=== PATIENT | female | born 1980 | race Caucasian/White ===

== ENCOUNTER 2021-09-23 18:04 | Inpatient (IN) | payer OTHER ==
[2021-09-23] MEDS ORDERED: ROCEPHIN 2 Gm-D5w 50ML BAG** 2 G/50 ML IVPB IV ONE (18:14)
[2021-09-23] MEDS ORDERED: DECADRON 10MG INJ. ONE (18:14)
[2021-09-23] MEDS ORDERED: Zithromax 500 MG/ 250 ML NaCl Premix 500 MG/250 ML IVPB IV ONE (18:15)
[2021-09-23] MEDS ORDERED: ROCEPHIN 2 Gm-D5w 50ML BAG** 2 G/50 ML IVPB IV STA (18:15)
[2021-09-23] MEDS ORDERED: Zithromax 500 MG/ 250 ML NaCl Premix 500 MG/250 ML IVPB IV STA (18:15)
[2021-09-23] MEDS ORDERED: DECADRON 10MG INJ. IV ONE (18:16)
[2021-09-23] MEDS ORDERED: REMDESIVIR 200 MG in Sodium Chloride 0.9% 250 ML 250 ML IV ONE (18:17)
--- NOTE | 2021-09-23 18:21 | ERPHSYRPT ---
- History of Present Illness Source: patient Exam Limitations: no limitations Timing/Duration: day(s) (10), gradual onset, worse Activities at Onset: activity, rest Severity of Dyspnea-Max: severe Severity of Dyspnea-Current: severe Possible Cause: illness exposure Modifying Factors: Improves With: oxygen. Worsens With: activity, coughing, deep breath, exertion Associated Symptoms: chest pain/discomfort, fever, wheezing, heaviness, lightheadedness, painful breathing, productive cough, tightness, No cough Hx Tetanus, Diphtheria Vaccination/Date Given: No Hx Influenza Vaccination/Date Given: No Hx Pneumococcal Vaccination/Date Given: No <LUCIO GOMEZ - Last Filed: 09/23/21 18:31> <MARY GRIGGS - Last Filed: 09/23/21 19:23> - History of Present Illness Time Seen by Provider: 09/23/21 18:07 Physician History: 41 years old morbidly obese female presented in the ER with chief complaint of worsening shortness of breath and cough for 10 days. Patient tested positive for COVID-19 1 day after receiving first shot of Pfizer vaccine. Shortness of breath initially with activity and now even at resting with cough productive of minimal clear mucus with subjective feeling of fever chills, headache, body aches and generalized weakness fatigue. Patient reports her shortness of breath was initially responding to breathing treatment but today got worse to the point she was not able to catch her breath even resting. On presentation her oxygen saturation is in the 60s. She is placed on nonrebreather which improved to 92% and is going to be placed on BiPAP. (LUCIO GOMEZ) Allergies/Adverse Reactions: No Known Drug Allergies Allergy (Verified 09/23/21 18:06) Home Medications: Chantix 01/23/13 [History] Protonix 01/23/13 [History] Synthroid 75 01/23/13 [History] - Review of Systems Constitutional: Fever, Chills, Fatigue, Weakness Eyes: No Symptoms Ears, Nose, & Throat: Nose Congestion, Throat Swelling Respiratory: Cough, Dyspnea, Dyspnea on Exertion (VALDES), Wheezing Cardiac: Chest Pain Abdominal/Gastrointestinal: No Symptoms Genitourinary Symptoms: No Symptoms Musculoskeletal: Myalgias Skin: No Symptoms Neurological: Dizziness, Headache Psychological: No Symptoms Endocrine: No Symptoms Hematologic/Lymphatic: No Symptoms Immunological/Allergic: No Symptoms <ERIKA GOMEZMIR - Last Filed: 09/23/21 18:31> - Past Medical History Pertinent Past Medical History: Yes Cardiac History: Hypertension Endocrine Medical History: Hypothyroidism - Past Surgical History Past Surgical History: Yes Female Surgical History: Section - Social History Smoking Status: Current every day smoker How long have you smoked: yrs Exposure to second hand smoke: Yes Drug Use: none Patient Lives Alone: No - Female History Hx Now: (unkn) <PATRICIAULCIO - Last Filed: 09/23/21 18:31> - Physical Exam General Appearance: moderate distress, alert Eye Exam: PERRL/EOMI, eyes nml inspection Ears, Nose, Throat Exam: hearing grossly normal, pharyngeal erythema Neck Exam: normal inspection, non-tender, supple, full range of motion Respiratory Exam: respiratory distress, diminished breath sounds, accessory muscle use, crackles/rales, rhonchi, wheezing Cardiovascular/Chest Exam: normal heart sounds, regular rate/rhythm Abdominal/Gastrointestinal Exam: soft, normal bowel sounds, No tenderness Extremity Exam: non-tender, normal range of motion Neurologic Exam: alert, oriented x 3, cooperative, die out worker II-XII nml as tested Skin Exam: normal color SpO2 Interpretation: hypoxic, O2 applied SpO2: 92 O2 Delivery: Non-rebreather <ERIKA GOMEZMIR - Last Filed: 09/23/21 18:31> - Nursing Vital Signs Nursing Vital Signs: Initial Vital Signs O2 Sat by Pulse Oximetry 67 L 09/23/21 18:05 Pain Scale Pain Intensity 0 - Course EKG Interpreted by Me: RATE (100), Sinus Rhythm, NORMAL AXIS, NORMAL INTERVALS, Q-wave (Inferior) <PATRICIALUCIO - Last Filed: 09/23/21 18:31> - Course EKG Interpreted by Me: RATE (100), Sinus Tach, NORMAL AXIS, NORMAL INTERVALS, NORMAL QRS - Radiology Exams Chest X-ray Interpretation: Interpreted by me, Other (Bilateral fluffy opacities both lung landers Covid-like in appearance) <MARY GRIGGS - Last Filed: 09/23/21 19:23> Ordered Tests: Active Orders 24 hr Category Date Time Status Supervisor Fine Grading STAT Care 09/23/21 18:16 Active EKG-ER Only STAT Care 09/23/21 18:15 Active IV Insertion STAT Care 09/23/21 18:15 Active Pulse Oximetry (ED) STAT Care 09/23/21 18:15 Active CHEST 1 VIEW (PORTABLE) Stat Exams 09/23/21 18:16 Taken ARTERIAL BLOOD GASES Stat Lab 09/23/21 18:25 Completed BLOOD CULTURE Stat Lab 09/23/21 18:20 Received CBC W DIFF Stat Lab 09/23/21 18:15 Completed CMP Stat Lab 09/23/21 18:20 Completed D-DIMER QUANTITATIVE Stat Lab 09/23/21 18:20 Completed Lactic Acid Stat Lab 09/23/21 18:25 Completed MAGNESIUM Stat Lab 09/23/21 18:20 Completed Manual Differential NC Stat Lab 09/23/21 18:15 Completed NT PRO BNP Stat Lab 09/23/21 18:20 Completed PROTIME WITH INR Stat Lab 09/23/21 18:20 Completed PTT Stat Lab 09/23/21 18:20 Completed TROPONIN Q3H Lab 09/23/21 18:20 Completed TROPONIN Q3H Lab 09/23/21 21:30 Ordered TROPONIN Q3H Lab 09/24/21 00:30 Ordered TROPONIN Q3H Lab 09/24/21 03:30 Ordered TROPONIN Q3H Lab 09/24/21 06:30 Ordered UA W/RFX UR CULTURE Stat Lab 09/23/21 18:16 Ordered BiPap/CPAP STAT RT 09/23/21 18:15 Active Respiratory MDI STAT RT 09/23/21 18:50 Completed Respiratory Therapy Assessment DAILY RT 09/23/21 18:43 Completed Medication Summary Generic Name Dose Route Start Last Admin Trade Name Freq PRN Reason Stop Dose Admin Remdesivir 200 mg/ Sodium 250 mls @ 125 mls/hr 09/23/21 18:17 Chloride IV 09/23/21 20:16 ONCE ONE Discontinued Medications Generic Name Dose Route Start Last Admin Trade Name Freq PRN Reason Stop Dose Admin Albuterol Sulfate 4 puff 09/23/21 18:32 09/23/21 18:42 Albuterol Common Canister Inhaler IH 09/23/21 18:33 4 puff ONCE STA Administration Dexamethasone Sodium Phosphate Confirm 09/23/21 18:14 Dexamethasone Sod Phosphate 10 Mg/Ml Administered 09/23/21 18:15 Dose 10 mg .ROUTE .STK-MED ONE Dexamethasone Sodium Phosphate 6 mg 09/23/21 18:16 09/23/21 18:23 Dexamethasone Sod Phosphate 10 Mg/Ml IV 09/23/21 18:17 6 mg STAT ONE Administration Ceftriaxone Sodium/Dextrose Confirm 09/23/21 18:14 Rocephin 2 Gm-D5w 50ml Bag Administered 09/23/21 18:15 Dose 2 g in 50 mls @ ud IV .STK-MED ONE Ceftriaxone Sodium/Dextrose 2 g in 50 mls @ 100 mls/hr 09/23/21 18:15 09/23/21 18:53 Rocephin 2 Gm-D5w 50ml Bag IV 09/23/21 18:44 Infused STAT STA Infusion Azithromycin 500 mg in 250 mls @ 250 mls/hr 09/23/21 18:15 09/23/21 18:23 Zithromax 500 Mg/ 250 Ml Nacl Premix IV 09/23/21 19:14 250 mls/hr STAT STA 250 mls/hr Administration Azithromycin Confirm 09/23/21 18:15 Zithromax 500 Mg/ 250 Ml Nacl Premix Administered 09/23/21 18:16 Dose 500 mg in 250 mls @ ud IV .STK-MED ONE Lab/Rad Data: Laboratory Result Diagrams 09/23/21 18:15 09/23/21 18:20 Laboratory Results 09/23/21 09/23/21 09/23/21 Range/Units 18:25 18:20 18:20 WBC (4.0-10.5) K/mm3 RBC (4.1-5.4) M/mm3 Hgb (12.0-16.0) gm/dl Hct (35-47) % MCV (78-100) fl MCH (26-32) pg MCHC (32-36) g/dl RDW (11.5-14.0) % Plt Count (150-450) K/mm3 MPV (7.5-11.0) fl PT 14.3 H (9.4-12.5) SECONDS INR 1.21 (0.8-3.0) APTT 31.4 (25.1-36.5) SECONDS D-Dimer 927 H* (215-500) ng/mL Puncture Site LEFT RADIAL pCO2 45 (35-45) mmHg pO2 77 (75-100) mmHg Base Excess 8.0 H (-2.0-2.0) O2 Saturation 94.1 (94-100) g/dF ABG pH 7.47 H (7.35-7.45) ABG HCO3 32.8 H* (22-28) ABG O2 Sat (Measured) 96.4 (95-100) % Jayce Test YES A-a Gradient 437 a/A Ratio 0.15 Hemoglobin 13.7 Carboxyhemoglobin 1.5 (0.0-6.9) % THgb Methemoglobin 0.9 L (1.4-1.5) % Temperature 37.0 C POC O2 Flow Rate 80 % Inspiratory BiPAP 14 Expiratory BiPAP 8 Sodium (137-145) mmol/L Potassium 3.3 L (3.5-5.1) mmol/L Chloride (98-107) mmol/L Carbon Dioxide (22-30) mmol/L Anion Gap (5-15) MEQ/L BUN (7-17) mg/dL Creatinine (0.52-1.04) mg/dL Estimated GFR ML/MIN Glucose (74-106) mg/dL Lactic Acid 1.4 (0.4-2.0) Calcium (8.4-10.2) mg/dL Magnesium (1.6-2.3) mg/dL Total Bilirubin (0.2-1.3) mg/dL AST (14-36) U/L ALT (0-35) U/L Alkaline Phosphatase (38-126) U/L Troponin I < 0.012 (0.000-0.034) ng/mL NT-Pro-B Natriuret Pep (0-450) pg/mL Serum Total Protein (6.3-8.2) g/dL Albumin (3.5-5.0) g/dL 09/23/21 09/23/21 Range/Units 18:20 18:15 WBC 6.4 (4.0-10.5) K/mm3 RBC 4.79 (4.1-5.4) M/mm3 Hgb 13.8 (12.0-16.0) gm/dl Hct 43.8 (35-47) % MCV 91.4 (78-100) fl MCH 28.8 (26-32) pg MCHC 31.5 L (32-36) g/dl RDW 14.5 H (11.5-14.0) % Plt Count 256 (150-450) K/mm3 MPV 9.8 (7.5-11.0) fl PT (9.4-12.5) SECONDS INR (0.8-3.0) APTT (25.1-36.5) SECONDS D-Dimer (215-500) ng/mL Puncture Site pCO2 (35-45) mmHg pO2 (75-100) mmHg Base Excess (-2.0-2.0) O2 Saturation (94-100) g/dF ABG pH (7.35-7.45) ABG HCO3 (22-28) ABG O2 Sat (Measured) (95-100) % Jayce Test A-a Gradient a/A Ratio Hemoglobin Carboxyhemoglobin (0.0-6.9) % THgb Methemoglobin (1.4-1.5) % Temperature C POC O2 Flow Rate % Inspiratory BiPAP Expiratory BiPAP Sodium 139 (137-145) mmol/L Potassium 4.1 (3.5-5.1) mmol/L Chloride 96 L (98-107) mmol/L Carbon Dioxide 30 (22-30) mmol/L Anion Gap 15.9 H (5-15) MEQ/L BUN 9 (7-17) mg/dL Creatinine 0.53 (0.52-1.04) mg/dL Estimated GFR > 60.0 ML/MIN Glucose 179 H (74-106) mg/dL Lactic Acid (0.4-2.0) Calcium 8.6 (8.4-10.2) mg/dL Magnesium 1.9 (1.6-2.3) mg/dL Total Bilirubin 0.60 (0.2-1.3) mg/dL AST 64 H (14-36) U/L ALT 55 H (0-35) U/L Alkaline Phosphatase 56 (38-126) U/L Troponin I (0.000-0.034) ng/mL NT-Pro-B Natriuret Pep 28.8 (0-450) pg/mL Serum Total Protein 6.6 (6.3-8.2) g/dL Albumin 3.7 (3.5-5.0) g/dL - Progress Progress: re-examined Air Movement: fair Blood Culture(s) Obtained: Yes Antibiotics given: Yes Discussed with : Other <LUCIO GOMEZ - Last Filed: 09/23/21 18:31> - Progress Progress Note: 09/23/21 18:52 She is placed on nonrebreather. EKG showed sinus rhythm without any acute ST elevation. Given IV steroids and albuterol puffs and started her on remdesivir along with Rocephin and Zithromax. Work-up is pending, care is transferred to Dr. Griggs at shift change for reevaluation and final disposition. (LUCIO ALICEA) <LUCIO GOMEZ - Last Filed: 09/23/21 18:31> - Departure Departure Disposition: In-patient Admission Critical Care Time: Yes Critical Care Time(excluding separately billable procedures): Critical 30-74 mins (55 min) <MARY RGIGGS - Last Filed: 09/23/21 19:23> - Departure Clinical Impression: Pneumonia due to COVID-19 virus Condition: Critical Referrals: VAIBHAV FRANCES [Primary Care Provider] - Follow up/PCP as directed
[2021-09-23 18:32] LABS: A-aADO2 437; ABG HEMOGLOBIN 13.7; ABG POTASSIUM 3.3 (3.5-5.1); ARTERIAL BLD GAS O2 SATURATION 96.4 % (95-100); ARTERIAL BLOOD GAS FIO2 80 %; ARTERIAL BLOOD GAS PCO2 45 mmHg (35-45); ARTERIAL BLOOD GAS PO2 77 mmHg (75-100); ARTERIAL BLOOD GAS pH 7.47 (7.35-7.45); CARBOXYHEMOGLOBIN 1.5 % THgb (0.0-6.9); HCO3- 32.8 (22-28); HGB O2 SAT 94.1 g/dF (94-100); Lactic Acid 1.4 (0.4-2.0); Methhemoglobin 0.9 % (1.4-1.5)
[2021-09-23] MEDS ORDERED: VENTOLIN COMMON CANISTER IH STA (18:32)
[2021-09-23 18:33] LABS: ABG SITE LEFT RADIAL; ALLEN TEST OK? YES
[2021-09-23 18:48] LABS: Hematocrit 43.8 % (35-47); Hemoglobin 13.8 gm/dl (12.0-16.0); Mean Cell Volume 91.4 fl (78-100); Mean Corpuscular Hemoglobin 28.8 pg (26-32); Mean Corpuscular Hgb Concent. 31.5 g/dl (32-36); Mean Platelet Volume 9.8 fl (7.5-11.0); Platelet Count 256 K/mm3 (150-450); Red Blood Count 4.79 M/mm3 (4.1-5.4); Red Cell Distribution Width 14.5 % (11.5-14.0); White Blood Count 6.4 K/mm3 (4.0-10.5)
[2021-09-23 19:02] LABS: INR 1.21 (0.8-3.0); PROTIME 14.3 SECONDS (9.4-12.5)
[2021-09-23 19:04] LABS: PTT 31.4 SECONDS (25.1-36.5)
[2021-09-23 19:15] LABS: ALBUMIN 3.7 g/dL (3.5-5.0); ALKALINE PHOSPHATASE 56 U/L (38-126); ANION GAP 15.9 MEQ/L (5-15); BLOOD UREA NITROGEN 9 mg/dL (7-17); CHLORIDE 96 mmol/L (98-107); Calcium 8.6 mg/dL (8.4-10.2); Carbon Dioxide 30 mmol/L (22-30); Creatinine 1 0.53 mg/dL (0.52-1.04); EST GLOMERULAR FILTRATION RATE > 60.0 ML/MIN; Glucose 179 mg/dL (74-106); MAGNESIUM 1.9 mg/dL (1.6-2.3); NT PRO BNP 28.8 pg/mL (0-450); Potassium 4.1 mmol/L (3.5-5.1); SGOT/AST 64 U/L (14-36); SGPT/ALT 55 U/L (0-35); SODIUM 139 mmol/L (137-145); Total Protein 6.6 g/dL (6.3-8.2)
[2021-09-23 21:13] LABS: INFLUENZA A NEGATIVE (NEGATIVE); INFLUENZA B NEGATIVE (NEGATIVE); RESPIRATORY SYNCTIAL VIRUS NEGATIVE (Negative)
[2021-09-23 21:24] LABS: SARS-CoV-2 Xpert Express POSITIVE (NEGATIVE)
--- NOTE | 2021-09-23 21:55 | XRAY ---
Indication: Short of breath. Positive Covid 19. Comparison: None Portable chest demonstrates moderate diffuse bilateral patchy airspace disease without consolidation/large effusion. Remaining heart and bony thorax unremarkable.
[2021-09-23] MEDS ORDERED: TYLENOL EXTRA STRENGTH 500 MG PO PRN (22:10)
[2021-09-23] MEDS ORDERED: FEVERALL 650 MG PR PRN (22:11)
[2021-09-23] MEDS ORDERED: Zofran 4 MG/2 ML VIAL IV PRN (22:12)
[2021-09-23] MEDS ORDERED: PROVENTIL 2.5 MG/3 ML NEB IH PRN (22:22)
[2021-09-23] MEDS ORDERED: VENTOLIN COMMON CANISTER IH PRN (22:22)
[2021-09-23] MEDS: Sodium Chloride 0.9% 1000 ML 1,000 ML IV SCH (23:00)
[2021-09-23] MEDS: ENOXAPARIN SODIUM SQ SCH (23:00)
[2021-09-23] MEDS: Ativan 1 MG PO PRN (23:00)
[2021-09-23 23:26] LABS: Lymphocytes 15 % (24-44); Monocyte 5 % (0.0-12.0); Neutrophils 80 % (36.0-66.0); Platelet Estimate NORMAL (NORMAL); Total Cells Counted 100
[2021-09-24] MEDS ORDERED: REMDESIVIR 100 MG in Sodium Chloride 0.9% 100 ML BAG 100 ML IV SCH ×2
[2021-09-24 05:06] LABS: Hematocrit 41.9 % (35-47); Hemoglobin 12.9 gm/dl (12.0-16.0); Mean Cell Volume 93.1 fl (78-100); Mean Corpuscular Hemoglobin 28.7 pg (26-32); Mean Corpuscular Hgb Concent. 30.8 g/dl (32-36); Mean Platelet Volume 9.5 fl (7.5-11.0); Platelet Count 245 K/mm3 (150-450); Red Cell Distribution Width 14.6 % (11.5-14.0)
[2021-09-24 05:27] LABS: A-aADO2 504; ABG HEMOGLOBIN 13.2; ABG POTASSIUM 3.8 (3.5-5.1); ABG SITE LEFT RADIAL; ALLEN TEST OK? YES; ARTERIAL BLD GAS O2 SATURATION 96.2 % (95-100); ARTERIAL BLOOD GAS BASE EXCESS 6.4 (-2.0-2.0); ARTERIAL BLOOD GAS FIO2 90 %; ARTERIAL BLOOD GAS PCO2 48 mmHg (35-45); ARTERIAL BLOOD GAS PO2 78 mmHg (75-100); ARTERIAL BLOOD GAS pH 7.43 (7.35-7.45); CARBOXYHEMOGLOBIN 1.1 % THgb (0.0-6.9); HCO3- 31.9 (22-28); HGB O2 SAT 94.7 g/dF (94-100); Methhemoglobin 0.5 % (1.4-1.5)
[2021-09-24 05:30] LABS: ALBUMIN 3.6 g/dL (3.5-5.0); ALKALINE PHOSPHATASE 53 U/L (38-126); ANION GAP 14.7 MEQ/L (5-15); BLOOD UREA NITROGEN 9 mg/dL (7-17); CHLORIDE 98 mmol/L (98-107); Calcium 8.3 mg/dL (8.4-10.2); Carbon Dioxide 32 mmol/L (22-30); Creatinine 1 0.55 mg/dL (0.52-1.04); EST GLOMERULAR FILTRATION RATE > 60.0 ML/MIN; Glucose 216 mg/dL (74-106); NT PRO BNP 30.6 pg/mL (0-450); Potassium 4.1 mmol/L (3.5-5.1); SGOT/AST 52 U/L (14-36); SGPT/ALT 56 U/L (0-35); SODIUM 141 mmol/L (137-145); Total Protein 6.7 g/dL (6.3-8.2)
[2021-09-24 07:31] LABS: BAND 7 % (0.0-2.0); Lymphocytes 8 % (24-44); Monocyte 5 % (0.0-12.0); Neutrophils 80 % (36.0-66.0); Platelet Estimate NORMAL (NORMAL); Total Cells Counted 100
[2021-09-24] MEDS: Ativan 1 MG PO PRN ×3 (08:43→20:49)
[2021-09-24] MEDS: SYNTHROID 25 MCG PO SCH (08:44)
--- NOTE | 2021-09-24 09:46 | PCM.HP ---
History of Present Illness - Chief Complaint Chief Complaint: Covid History of Present Illness: is a 41 year old female with no local physician, she has a history of hypertension and hypothyroidism. she states she developed symptoms of covid 1 day after receiving her first dose of vaccine, a week later she tested positive for covid. Her cough and shortness of breath has progressed and worsened, symptoms began 10 days ago. She is a former smoker of nearly 30 years but quit 5 years ago according to the patient but she has no diagnosed lung conditions, no history of coronary disease. - Review of Systems Constitutional: No Fever, No Chills Respiratory: Cough, Short Of Breath Cardiac: No Chest Pain, No Edema, No Syncope Abdominal/Gastrointestinal: No Abdominal Pain, No Nausea, No Vomiting, No Diarrhea Genitourinary Symptoms: No Dysuria All Other Systems: Reviewed and Negative Medications & Allergies Home Medications: Home Medication List Levothyroxine Sodium 25 Mcg [Synthroid 25 Mcg] 25 mcg PO QAM 01/23/13 [History Confirmed 09/23/21] HydrALAzine HCL 25 MG TAB [Apresoline 25 MG TABLET] 25 mg PO BID 09/23/21 [History Confirmed 09/23/21] Allergies/Adverse Reactions: Allergies Allergy/AdvReac Type Severity Reaction Status Date / Time No Known Drug Allergies Allergy Verified 09/23/21 18:06 - Past Medical History Past Medical History: Yes Cardiac History: Hypertension Endocrine Medical History: Hypothyroidism - Female History Are you now?: No (unkn) - Past Surgical History Past Surgical History: Yes Female Surgical History: Section - Social History Smoking Status: Former smoker How long have you smoked: yrs Exposure to second hand smoke: Yes Alcohol: None Drug Use: none - Physical Exam Vital Signs: Vital Signs - 24 hr Temp Pulse Resp BP Pulse Ox 09/24/21 09:00 97.6 F 79 28 H 142/76 89 L 09/24/21 07:36 70 21 90 L 09/24/21 07:17 89 28 H 90 L 09/24/21 06:47 97.8 F 71 20 133/76 89 L 09/24/21 06:00 97.6 F 71 16 130/76 92 L 09/24/21 05:00 97.4 F 67 28 H 92 L 09/24/21 03:49 97.6 F 55 L 28 H 130/76 94 L 09/24/21 02:58 97.8 F 64 26 H 134/76 93 L 09/24/21 02:00 97.5 F 71 26 H 136/70 91 L 09/24/21 01:00 97.3 F 72 23 133/80 89 L 09/23/21 23:59 97.6 F 81 16 131/78 91 L 09/23/21 23:45 79 26 H 95 09/23/21 23:00 98.0 F 80 28 H 131/78 93 L 09/23/21 22:35 98.2 F 79 12 112/82 93 L 09/23/21 20:11 88 24 112/74 96 09/23/21 19:30 88 22 133/90 98 09/23/21 19:03 90 26 H 98/57 96 09/23/21 18:43 103 H 24 97 09/23/21 18:35 98 H 18 135/78 96 09/23/21 18:33 92 L 09/23/21 18:25 96 09/23/21 18:06 97.8 F 110 H 35 H 135/78 60 L 09/23/21 18:05 67 L General Appearance: no apparent distress, obese Neurologic Exam: alert, oriented x 3, cooperative Respiratory Exam: diminished breath sounds, accessory muscle use, rhonchi Cardiovascular Exam: regular rate/rhythm, normal heart sounds, normal peripheral pulses Gastrointestinal/Abdomen Exam: soft, normal bowel sounds, No tenderness, No mass Extremity Exam: normal inspection, normal range of motion, pelvis stable Skin Exam: normal color, warm, dry, No rash Results - Labs Lab/Micro Results: Lab Results-Last 24 Hours 09/23/21 09/23/21 09/23/21 Range/Units 18:15 18:20 18:20 WBC 6.4 (4.0-10.5) K/mm3 RBC 4.79 (4.1-5.4) M/mm3 Hgb 13.8 (12.0-16.0) gm/dl Hct 43.8 (35-47) % MCV 91.4 (78-100) fl MCH 28.8 (26-32) pg MCHC 31.5 L (32-36) g/dl RDW 14.5 H (11.5-14.0) % Plt Count 256 (150-450) K/mm3 MPV 9.8 (7.5-11.0) fl Segmented Neutrophils 80 H (36.0-66.0) % Band Neutrophils (0.0-2.0) % Lymphocytes (Manual) 15 L (24-44) % Monocytes (Manual) 5 (0.0-12.0) % Platelet Estimate NORMAL (NORMAL) RBC Morphology NORMAL PT 14.3 H (9.4-12.5) SECONDS INR 1.21 (0.8-3.0) APTT 31.4 (25.1-36.5) SECONDS D-Dimer 927 H* (215-500) ng/mL Puncture Site pCO2 (35-45) mmHg pO2 (75-100) mmHg Base Excess (-2.0-2.0) O2 Saturation (94-100) g/dF ABG pH (7.35-7.45) ABG HCO3 (22-28) ABG O2 Sat (Measured) (95-100) % Jayce Test A-a Gradient a/A Ratio Hemoglobin Carboxyhemoglobin (0.0-6.9) % THgb Methemoglobin (1.4-1.5) % Temperature C POC O2 Flow Rate % Inspiratory BiPAP Expiratory BiPAP Sodium 139 (137-145) mmol/L Potassium 4.1 (3.5-5.1) mmol/L Chloride 96 L (98-107) mmol/L Carbon Dioxide 30 (22-30) mmol/L Anion Gap 15.9 H (5-15) MEQ/L BUN 9 (7-17) mg/dL Creatinine 0.53 (0.52-1.04) mg/dL Estimated GFR > 60.0 ML/MIN Glucose 179 H (74-106) mg/dL Lactic Acid (0.4-2.0) Calcium 8.6 (8.4-10.2) mg/dL Magnesium 1.9 (1.6-2.3) mg/dL Total Bilirubin 0.60 (0.2-1.3) mg/dL AST 64 H (14-36) U/L ALT 55 H (0-35) U/L Alkaline Phosphatase 56 (38-126) U/L Troponin I (0.000-0.034) ng/mL NT-Pro-B Natriuret Pep 28.8 (0-450) pg/mL Serum Total Protein 6.6 (6.3-8.2) g/dL Albumin 3.7 (3.5-5.0) g/dL Influenza Type A Ag (NEGATIVE) Influenza Type B Ag (NEGATIVE) RSV (PCR) (Negative) SARS-CoV-2 (PCR) (NEGATIVE) 09/23/21 09/23/21 09/23/21 Range/Units 18:20 18:25 20:34 WBC (4.0-10.5) K/mm3 RBC (4.1-5.4) M/mm3 Hgb (12.0-16.0) gm/dl Hct (35-47) % MCV (78-100) fl MCH (26-32) pg MCHC (32-36) g/dl RDW (11.5-14.0) % Plt Count (150-450) K/mm3 MPV (7.5-11.0) fl Segmented Neutrophils (36.0-66.0) % Band Neutrophils (0.0-2.0) % Lymphocytes (Manual) (24-44) % Monocytes (Manual) (0.0-12.0) % Platelet Estimate (NORMAL) RBC Morphology PT (9.4-12.5) SECONDS INR (0.8-3.0) APTT (25.1-36.5) SECONDS D-Dimer (215-500) ng/mL Puncture Site LEFT RADIAL pCO2 45 (35-45) mmHg pO2 77 (75-100) mmHg Base Excess 8.0 H (-2.0-2.0) O2 Saturation 94.1 (94-100) g/dF ABG pH 7.47 H (7.35-7.45) ABG HCO3 32.8 H* (22-28) ABG O2 Sat (Measured) 96.4 (95-100) % Jayce Test YES A-a Gradient 437 a/A Ratio 0.15 Hemoglobin 13.7 Carboxyhemoglobin 1.5 (0.0-6.9) % THgb Methemoglobin 0.9 L (1.4-1.5) % Temperature 37.0 C POC O2 Flow Rate 80 % Inspiratory BiPAP 14 Expiratory BiPAP 8 Sodium (137-145) mmol/L Potassium 3.3 L (3.5-5.1) mmol/L Chloride (98-107) mmol/L Carbon Dioxide (22-30) mmol/L Anion Gap (5-15) MEQ/L BUN (7-17) mg/dL Creatinine (0.52-1.04) mg/dL Estimated GFR ML/MIN Glucose (74-106) mg/dL Lactic Acid 1.4 (0.4-2.0) Calcium (8.4-10.2) mg/dL Magnesium (1.6-2.3) mg/dL Total Bilirubin (0.2-1.3) mg/dL AST (14-36) U/L ALT (0-35) U/L Alkaline Phosphatase (38-126) U/L Troponin I < 0.012 (0.000-0.034) ng/mL NT-Pro-B Natriuret Pep (0-450) pg/mL Serum Total Protein (6.3-8.2) g/dL Albumin (3.5-5.0) g/dL Influenza Type A Ag NEGATIVE (NEGATIVE) Influenza Type B Ag NEGATIVE (NEGATIVE) RSV (PCR) NEGATIVE (Negative) SARS-CoV-2 (PCR) POSITIVE A (NEGATIVE) 09/23/21 09/24/21 09/24/21 Range/Units 21:30 00:30 05:00 WBC (4.0-10.5) K/mm3 RBC (4.1-5.4) M/mm3 Hgb (12.0-16.0) gm/dl Hct (35-47) % MCV (78-100) fl MCH (26-32) pg MCHC (32-36) g/dl RDW (11.5-14.0) % Plt Count (150-450) K/mm3 MPV (7.5-11.0) fl Segmented Neutrophils (36.0-66.0) % Band Neutrophils (0.0-2.0) % Lymphocytes (Manual) (24-44) % Monocytes (Manual) (0.0-12.0) % Platelet Estimate (NORMAL) RBC Morphology PT (9.4-12.5) SECONDS INR (0.8-3.0) APTT (25.1-36.5) SECONDS D-Dimer (215-500) ng/mL Puncture Site pCO2 (35-45) mmHg pO2 (75-100) mmHg Base Excess (-2.0-2.0) O2 Saturation (94-100) g/dF ABG pH (7.35-7.45) ABG HCO3 (22-28) ABG O2 Sat (Measured) (95-100) % Jayce Test A-a Gradient a/A Ratio Hemoglobin Carboxyhemoglobin (0.0-6.9) % THgb Methemoglobin (1.4-1.5) % Temperature C POC O2 Flow Rate % Inspiratory BiPAP Expiratory BiPAP Sodium (137-145) mmol/L Potassium (3.5-5.1) mmol/L Chloride (98-107) mmol/L Carbon Dioxide (22-30) mmol/L Anion Gap (5-15) MEQ/L BUN (7-17) mg/dL Creatinine (0.52-1.04) mg/dL Estimated GFR ML/MIN Glucose (74-106) mg/dL Lactic Acid (0.4-2.0) Calcium (8.4-10.2) mg/dL Magnesium (1.6-2.3) mg/dL Total Bilirubin (0.2-1.3) mg/dL AST (14-36) U/L ALT (0-35) U/L Alkaline Phosphatase (38-126) U/L Troponin I < 0.012 < 0.012 < 0.012 (0.000-0.034) ng/mL NT-Pro-B Natriuret Pep (0-450) pg/mL Serum Total Protein (6.3-8.2) g/dL Albumin (3.5-5.0) g/dL Influenza Type A Ag (NEGATIVE) Influenza Type B Ag (NEGATIVE) RSV (PCR) (Negative) SARS-CoV-2 (PCR) (NEGATIVE) 09/24/21 09/24/21 09/24/21 Range/Units 05:00 05:00 05:00 WBC 5.0 (4.0-10.5) K/mm3 RBC 4.50 (4.1-5.4) M/mm3 Hgb 12.9 (12.0-16.0) gm/dl Hct 41.9 (35-47) % MCV 93.1 (78-100) fl MCH 28.7 (26-32) pg MCHC 30.8 L (32-36) g/dl RDW 14.6 H (11.5-14.0) % Plt Count 245 (150-450) K/mm3 MPV 9.5 (7.5-11.0) fl Segmented Neutrophils 80 H (36.0-66.0) % Band Neutrophils 7 H (0.0-2.0) % Lymphocytes (Manual) 8 L (24-44) % Monocytes (Manual) 5 (0.0-12.0) % Platelet Estimate NORMAL (NORMAL) RBC Morphology NORMAL PT (9.4-12.5) SECONDS INR (0.8-3.0) APTT (25.1-36.5) SECONDS D-Dimer 819 H* (215-500) ng/mL Puncture Site pCO2 (35-45) mmHg pO2 (75-100) mmHg Base Excess (-2.0-2.0) O2 Saturation (94-100) g/dF ABG pH (7.35-7.45) ABG HCO3 (22-28) ABG O2 Sat (Measured) (95-100) % Jayce Test A-a Gradient a/A Ratio Hemoglobin Carboxyhemoglobin (0.0-6.9) % THgb Methemoglobin (1.4-1.5) % Temperature C POC O2 Flow Rate % Inspiratory BiPAP Expiratory BiPAP Sodium 141 (137-145) mmol/L Potassium 4.1 (3.5-5.1) mmol/L Chloride 98 (98-107) mmol/L Carbon Dioxide 32 H (22-30) mmol/L Anion Gap 14.7 (5-15) MEQ/L BUN 9 (7-17) mg/dL Creatinine 0.55 (0.52-1.04) mg/dL Estimated GFR > 60.0 ML/MIN Glucose 216 H (74-106) mg/dL Lactic Acid (0.4-2.0) Calcium 8.3 L (8.4-10.2) mg/dL Magnesium (1.6-2.3) mg/dL Total Bilirubin 0.30 (0.2-1.3) mg/dL AST 52 H (14-36) U/L ALT 56 H (0-35) U/L Alkaline Phosphatase 53 (38-126) U/L Troponin I (0.000-0.034) ng/mL NT-Pro-B Natriuret Pep 30.6 (0-450) pg/mL Serum Total Protein 6.7 (6.3-8.2) g/dL Albumin 3.6 (3.5-5.0) g/dL Influenza Type A Ag (NEGATIVE) Influenza Type B Ag (NEGATIVE) RSV (PCR) (Negative) SARS-CoV-2 (PCR) (NEGATIVE) 09/24/21 09/24/21 Range/Units 05:12 05:12 WBC (4.0-10.5) K/mm3 RBC (4.1-5.4) M/mm3 Hgb (12.0-16.0) gm/dl Hct (35-47) % MCV (78-100) fl MCH (26-32) pg MCHC (32-36) g/dl RDW (11.5-14.0) % Plt Count (150-450) K/mm3 MPV (7.5-11.0) fl Segmented Neutrophils (36.0-66.0) % Band Neutrophils (0.0-2.0) % Lymphocytes (Manual) (24-44) % Monocytes (Manual) (0.0-12.0) % Platelet Estimate (NORMAL) RBC Morphology PT (9.4-12.5) SECONDS INR (0.8-3.0) APTT (25.1-36.5) SECONDS D-Dimer (215-500) ng/mL Puncture Site LEFT RADIAL pCO2 48 H (35-45) mmHg pO2 78 (75-100) mmHg Base Excess 6.4 H (-2.0-2.0) O2 Saturation 94.7 (94-100) g/dF ABG pH 7.43 (7.35-7.45) ABG HCO3 31.9 H* (22-28) ABG O2 Sat (Measured) 96.2 (95-100) % Jayce Test YES A-a Gradient 504 a/A Ratio 0.13 Hemoglobin 13.2 Carboxyhemoglobin 1.1 (0.0-6.9) % THgb Methemoglobin 0.5 L (1.4-1.5) % Temperature 37.0 C POC O2 Flow Rate 90 % Inspiratory BiPAP 14 Expiratory BiPAP 8 Sodium (137-145) mmol/L Potassium 3.8 (3.5-5.1) mmol/L Chloride (98-107) mmol/L Carbon Dioxide (22-30) mmol/L Anion Gap (5-15) MEQ/L BUN (7-17) mg/dL Creatinine (0.52-1.04) mg/dL Estimated GFR ML/MIN Glucose (74-106) mg/dL Lactic Acid 0.9 (0.4-2.0) Calcium (8.4-10.2) mg/dL Magnesium (1.6-2.3) mg/dL Total Bilirubin (0.2-1.3) mg/dL AST (14-36) U/L ALT (0-35) U/L Alkaline Phosphatase (38-126) U/L Troponin I (0.000-0.034) ng/mL NT-Pro-B Natriuret Pep (0-450) pg/mL Serum Total Protein (6.3-8.2) g/dL Albumin (3.5-5.0) g/dL Influenza Type A Ag (NEGATIVE) Influenza Type B Ag (NEGATIVE) RSV (PCR) (Negative) SARS-CoV-2 (PCR) (NEGATIVE) - Radiology Impressions Radiology Exams & Impressions: Radiology Procedures Category Date Time Status CHEST 1 VIEW (PORTABLE) Stat Exams 09/23/21 18:16 Completed - Other Procedures and Tests Respiratory Therapy 09/23/21 18:15 BiPap/CPAP STAT 09/23/21 22:23 Oxygen Oxymizer LPM 15 lpm 09/23/21 22:24 Respiratory Therapy Assessment DAILY Assessment/Plan (1) Pneumonia due to COVID-19 virus Current Visit: Yes Status: Acute Assessment & Plan: patient receiving remdesivir and IV dexamethasone, she is not on chronic oxygen therapy but currently requiring bipap therapy. due to severity of lung dysfunction will add olumiant 4mg daily as well. consult with pulmonology due to severity of disease and risk of further progression. lovenox is ordered Code(s): U07.1 - COVID-19; J12.82 - PNEUMONIA DUE TO CORONAVIRUS DISEASE 2018 (2) Acute respiratory failure due to COVID-19 Current Visit: Yes Status: Acute Code(s): U07.1 - COVID-19; J96.00 - ACUTE RESPIRATORY FAILURE, UNSP W HYPOXIA OR HYPERCAPNIA
[2021-09-24] MEDS: DECADRON 10MG INJ. IV SCH (11:27)
[2021-09-24] MEDS: OLUMIANT PO SCH (11:27)
[2021-09-24] MEDS: Apresoline 25 MG TABLET PO SCH ×2 (11:28→20:49)
[2021-09-24] MEDS: REMDESIVIR 100 MG in Sodium Chloride 0.9% 100 ML BAG 100 ML IV SCH (17:18)
[2021-09-24] MEDS: ENOXAPARIN SODIUM SQ SCH (20:49)
[2021-09-25] MEDS: Ativan 1 MG PO PRN ×3 (00:46→22:37)
[2021-09-25 01:07] LABS: Appearance SLIGHTLY CLOUDY (CLEAR); Bilirubin NEGATIVE (NEGATIVE); Blood NEGATIVE Ery/ul (0-5); Epithelial Cells RARE /HPF (FEW); Glucose NEGATIVE (NEGATIVE); Ketones NEGATIVE (NEGATIVE); Leukocyte Esterase NEGATIVE (NEGATIVE); Mucus SLIGHT /HPF (NEGATIVE); Nitrite NEGATIVE (NEGATIVE); Protein,Urine Dip 30 (Negative); Specific Gravity 1.027 (1.005-1.025); Urobilinogen NEGATIVE mg/dL (0-1)
[2021-09-25 06:29] LABS: Hemoglobin 12.2 gm/dl (12.0-16.0); Mean Cell Volume 94.8 fl (78-100); Mean Corpuscular Hemoglobin 28.9 pg (26-32); Mean Corpuscular Hgb Concent. 30.5 g/dl (32-36); Mean Platelet Volume 9.9 fl (7.5-11.0); Platelet Count 322 K/mm3 (150-450); Red Blood Count 4.22 M/mm3 (4.1-5.4); Red Cell Distribution Width 14.6 % (11.5-14.0); White Blood Count 6.5 K/mm3 (4.0-10.5)
[2021-09-25 07:11] LABS: ATYPICAL LYMPHS 1 %; BAND 13 % (0.0-2.0); Lymphocytes 17 % (24-44); Monocyte 4 % (0.0-12.0); Neutrophils 65 % (36.0-66.0); Total Cells Counted 100
[2021-09-25 07:12] LABS: Absolute Neutrophil Ct (ANC) 5.05 (1.4-6.9); Platelet Estimate NORMAL (NORMAL)
[2021-09-25] MEDS: OLUMIANT PO SCH (12:14)
[2021-09-25] MEDS: SYNTHROID 25 MCG PO SCH (12:17)
[2021-09-25] MEDS: DECADRON 10MG INJ. IV SCH (12:18)
[2021-09-25] MEDS: Apresoline 25 MG TABLET PO SCH ×2 (12:18→22:37)
[2021-09-25] MEDS: REMDESIVIR 100 MG in Sodium Chloride 0.9% 100 ML BAG 100 ML IV SCH (18:31)
[2021-09-25] MEDS: Sodium Chloride 0.9% 1000 ML 1,000 ML IV SCH (19:55)
[2021-09-25] MEDS: ENOXAPARIN SODIUM SQ SCH (22:37)
[2021-09-26 04:38] LABS: Hematocrit 43.6 % (35-47); Hemoglobin 13.2 gm/dl (12.0-16.0); Mean Cell Volume 94.6 fl (78-100); Mean Corpuscular Hemoglobin 28.6 pg (26-32); Mean Corpuscular Hgb Concent. 30.3 g/dl (32-36); Mean Platelet Volume 9.8 fl (7.5-11.0); Platelet Count 405 K/mm3 (150-450); Red Blood Count 4.61 M/mm3 (4.1-5.4); Red Cell Distribution Width 14.5 % (11.5-14.0); White Blood Count 8.4 K/mm3 (4.0-10.5)
[2021-09-26 06:01] LABS: BAND 1 % (0.0-2.0); Lymphocytes 21 % (24-44); Monocyte 8 % (0.0-12.0); Neutrophils 70 % (36.0-66.0); Platelet Estimate NORMAL (NORMAL); Total Cells Counted 100
[2021-09-26] MEDS: Sodium Chloride 0.9% 1000 ML 1,000 ML IV SCH (09:55)
[2021-09-26] MEDS: OLUMIANT PO SCH (09:57)
[2021-09-26] MEDS: SYNTHROID 25 MCG PO SCH (09:57)
[2021-09-26] MEDS: DECADRON 10MG INJ. IV SCH (09:57)
[2021-09-26] MEDS: Apresoline 25 MG TABLET PO SCH ×2 (09:58→21:35)
[2021-09-26] MEDS: REMDESIVIR 100 MG in Sodium Chloride 0.9% 100 ML BAG 100 ML IV SCH (17:13)
[2021-09-26] MEDS: ENOXAPARIN SODIUM SQ SCH (21:28)
[2021-09-27 06:36] LABS: Hematocrit 42.9 % (35-47); Hemoglobin 13.1 gm/dl (12.0-16.0); Mean Cell Volume 93.7 fl (78-100); Mean Corpuscular Hemoglobin 28.6 pg (26-32); Mean Corpuscular Hgb Concent. 30.5 g/dl (32-36); Mean Platelet Volume 9.7 fl (7.5-11.0); Platelet Count 440 K/mm3 (150-450); Red Blood Count 4.58 M/mm3 (4.1-5.4); Red Cell Distribution Width 14.4 % (11.5-14.0); White Blood Count 10.8 K/mm3 (4.0-10.5)
[2021-09-27 07:02] LABS: ALBUMIN 3.5 g/dL (3.5-5.0); ALKALINE PHOSPHATASE 54 U/L (38-126); BLOOD UREA NITROGEN 18 mg/dL (7-17); CHLORIDE 107 mmol/L (98-107); Calcium 8.3 mg/dL (8.4-10.2); Carbon Dioxide 29 mmol/L (22-30); Creatinine 1 0.78 mg/dL (0.52-1.04); EST GLOMERULAR FILTRATION RATE > 60.0 ML/MIN; Glucose 162 mg/dL (74-106); Potassium 4.1 mmol/L (3.5-5.1); SGOT/AST 52 U/L (14-36); SGPT/ALT 74 U/L (0-35); SODIUM 144 mmol/L (137-145); Total Protein 6.6 g/dL (6.3-8.2)
[2021-09-27] MEDS: DECADRON 10MG INJ. IV SCH (09:10)
[2021-09-27] MEDS: Apresoline 25 MG TABLET PO SCH ×2 (09:10→21:33)
[2021-09-27] MEDS: OLUMIANT PO SCH (09:10)
[2021-09-27] MEDS: SYNTHROID 25 MCG PO SCH (09:10)
[2021-09-27] MEDS: Sodium Chloride 0.9% 1000 ML 1,000 ML IV SCH ×2 (09:11)
[2021-09-27] MEDS: REMDESIVIR 100 MG in Sodium Chloride 0.9% 100 ML BAG 100 ML IV SCH (17:40)
[2021-09-27] MEDS: ENOXAPARIN SODIUM SQ SCH (21:33)
[2021-09-28] MEDS: DECADRON 10MG INJ. IV SCH (10:50)
[2021-09-28] MEDS: OLUMIANT PO SCH (10:52)
[2021-09-28] MEDS: SYNTHROID 25 MCG PO SCH (10:52)
[2021-09-28] MEDS: Apresoline 25 MG TABLET PO SCH ×2 (10:53→21:22)
[2021-09-28] MEDS: Sodium Chloride 0.9% 1000 ML 1,000 ML IV SCH (13:32)
[2021-09-28] MEDS: ENOXAPARIN SODIUM SQ SCH (21:21)
--- NOTE | 2021-09-29 08:43 | XRAY ---
Indication: Covid 19. Elevated d-dimer. Multiple contiguous axial images obtained through the chest using 100 cc Isovue 370 contrast and PE protocol. Comparison: None. There is good opacification of the pulmonary arteries to include the lobar and segmental branches. No pulmonary embolus. Heart borderline enlarged. Aorta is normal in course and caliber. No pathologic mediastinal/hilar lymphadenopathy. Lungs demonstrate moderate diffuse bilateral patchy airspace disease without consolidation/effusion. Bony thorax intact with minimal degenerative changes throughout spine. Limited upper abdomen demonstrates diffuse fatty liver. Impression: 1. Negative pulmonary embolus. 2. Diffuse bilateral patchy airspace disease. Commonly reported imaging features of Covid 19 pneumonia are present. Other processes such as influenza pneumonia and organizing pneumonia, as can be seen with drug toxicity and connective-tissue disease can cause a similar imaging pattern. 3. Incidental fatty liver.
[2021-09-29] MEDS: SYNTHROID 25 MCG PO SCH (10:00)
[2021-09-29] MEDS: OLUMIANT PO SCH (10:00)
[2021-09-29] MEDS: Apresoline 25 MG TABLET PO SCH (10:01)
[2021-09-29] MEDS: DECADRON 10MG INJ. IV SCH (10:01)
[2021-09-29 12:25] VITALS: BP 153/94; PULSE 80; O2SAT 91
--- NOTE | 2021-09-30 08:39 | DS ---
ADMISSION DIAGNOSES: 1) COVID with bilateral pneumonia. 2) Respiratory distress. DISCHARGE DIAGNOSES: 1) COVID WITH BILATERAL PNEUMONIA. 2) RESPIRATORY DISTRESS. HOSPITAL COURSE: History of hypertension. She developed COVID a day after receiving the first dose really unlucky. She has some hypothyroidism. She is a former smoker for years but quit five years ago. She is presently on levothyroxine 25 mcg q.d., Apresoline 25 mg b.i.d. for hypertension. She does not drink alcohol or use illicit drugs. 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 She has several sons who had been very successful in their life and she is interesting. Here she kind of remained like a normal moderately severe COVID. Slowly her oxygen got better while using Remdesivir, Decadron, antibodies, try to get her to lay prone. Troponins were negative. White count was 5,000. D-dimer at one point was 819. She had new onset of shortness of breath so we did not do pulmonary emboli. She was initially admitted on BiPAP and just gradually weaned down to now she is down to 2 or 3 liters. Feeling well, up walking around and eating 100%, markedly improved. RESTRICITIONS: Wear 2 liters nasal cannula at all times, check her oxygen frequently and call for O2 drops. She can call here of course if any questions, too. DISPOSITION: She is to follow up with Dr. Nelida Galeas, her normal doctor in two weeks. She is to consider getting the vaccine after David. By that time a large amount of antibodies should be decreasing and she should not get that sick from getting the vaccine and certainly she needs it in view of all the new variants coming out. Her medicines at home will be Tylenol PRN, prednisone 20 mg x5 and 10 mg x5, plus her usual home medicines. She has one son who is an adult that lives with her. PROGNOSIS: Good.
== END 2021-09-29 13:15 | disposition home or self-care (01) | DRG 177 ==
LOC: ED 18:04 → MED SURG 21:53
PROVIDERS: ADMIT Family Medicine; ATTEND Family Medicine
DX: U07.1 COVID-19 (principal); J12.82 Pneumonia due to coronavirus disease 2019; J96.00 Acute respiratory failure, unspecified whether with hypoxia or hypercapnia; I10 Essential (primary) hypertension; E03.9 Hypothyroidism, unspecified; E66.9 Obesity, unspecified; Z79.899 Other long term (current) drug therapy; Z87.891 Personal history of nicotine dependence; Z20.828 Contact with and (suspected) exposure to other viral communicable diseases
CPT/HCPCS: 0241U; 36000; 36415; 36600; 71045; 71260; 80053; 81001; 82375; 82803; 83036; 83605; 83735; 83880; 84484; 85025; 85027; 85379; 85610; 85730; 87040; 93005; 93041; 94002; 94003; 94640; 94760; 94762; 96374; 99285; 99291; J0456; J0696; J1100; J1650; A9270-GY